=== PATIENT | female | born 1965 | race American Indian/Alaskan Native ===

== ENCOUNTER 2016-09-25 02:49 | Emergency (ER) | payer OTHER ==
[2016-09-25 03:18] LABS: Basophils % (Auto) 0.6 % (0.0-1.8); Eosinophils % (Auto) 0.6 % (0.0-4.3); Hematocrit 35.5 % (30.3-42.9); Hemoglobin 11.5 gm/dl (10.1-14.3); Mean Corpuscular HGB Conc 32 % (30-34); Mean Corpuscular Hemoglobin 28 pg (28-32); Mean Corpuscular Volume 86 fl (79-97); Platelet Count 207 K/mm3 (140-440); Red Blood Count 4.12 M/mm3 (3.65-5.03); White Blood Count 5.7 K/mm3 (4.5-11.0)
[2016-09-25 03:36] LABS: Anion Gap 18 mmol/L; Blood Urea Nitrogen 14 mg/dL (7-17); Calcium 8.8 mg/dL (8.4-10.2); Carbon Dioxide 25 mmol/L (22-30); Chloride 101.7 mmol/L (98-107); Glucose 98 mg/dL (65-100); Potassium 3.8 mmol/L (3.6-5.0); Sodium 141 mmol/L (137-145)
--- NOTE | 2016-09-25 03:49 | Emergency Department Report ---
<WES STINSON I. - Last Filed: 09/25/16 05:37> ED Chest Pain HPI - General Chief Complaint: Chest Pain Stated Complaint: CHEST PAIN Time Seen by Provider: 09/25/16 03:39 Source: patient Mode of arrival: Ambulatory Limitations: No Limitations - History of Present Illness Initial Comments: Pt is a 51 yr old female with no PMHx presents with R sided chest pain. Pt reports she was sitting in her living room when she felt chest discomfort under her R breast with L shoulder "throbbing sensation and decreased sensation". Pt reports her R chest is tender to touch and she "is aware of the pain when touched". Pain is constant with no radiation or migration. No prior episodes, last stress test was years ago. She also took 2 baby asa prior to arrival. Otherwise no fevers, chills, ROBLES, dizziness, syncope, NVD, SOB, abd pain, extremity pain or swelling, hemoptysis, travel, OCP, h/o malignancy or DVT/PE. MD Complaint: chest pain -: Sudden Onset: during rest Pain Location: right chest Severity: mild Quality: aching, pressure Consistency: constant Improves With: nothing Worsens With: exertion - Related Data On Oral Contraceptives: No Allergies Allergy/AdvReac Type Severity Reaction Status Date / Time peanut Allergy Shortness Verified 09/25/16 02:58 of Breath shellfish derived Allergy Hives Verified 09/25/16 02:58 JORGE L score - Jorge L Score Age > 65: (0) No Aspirin use within the Past 7 Days: (1) Yes 3 or more CAD Risk Factors: (0) No 2 or more Angina events in past 24 hrs: (0) No Known CAD with more than 50% Stenosis: (0) No Elevated Cardiac Markers: (0) No ST Deviation Greater than 0.5mm: (0) No JORGE L Score: 1 ED Review of Systems ROS: Stated complaint: CHEST PAIN Other details as noted in HPI Comment: All other systems reviewed and negative ED Past Medical Hx - Past Medical History Previous Medical History?: No - Surgical History Past Surgical History?: No - Social History Smoking Status: Never Smoker Substance Use Type: None ED Physical Exam - General Limitations: No Limitations General appearance: alert, in no apparent distress - Head Head exam: Present: atraumatic, normocephalic - Eye Eye exam: Present: normal appearance - ENT ENT exam: Present: mucous membranes moist - Neck Neck exam: Present: normal inspection - Respiratory Respiratory exam: Present: normal lung sounds bilaterally. Absent: respiratory distress - Cardiovascular Cardiovascular Exam: Present: regular rate, normal rhythm, normal heart sounds, other (R sided chest wall tenderness beneath R breast, reproducible). Absent: tachycardia, irregular rhythm, systolic murmur, diastolic murmur, rubs, gallop - GI/Abdominal GI/Abdominal exam: Present: soft, normal bowel sounds - Extremities Exam Extremities exam: Present: normal inspection, other (patient reports decreased sensation to the L shoulder as compared to the right) - Back Exam Back exam: Present: normal inspection - Neurological Exam Neurological exam: Present: alert, oriented X3 - Psychiatric Psychiatric exam: Present: normal affect, normal mood - Skin Skin exam: Present: warm, dry, intact, normal color. Absent: rash ED Course Vital Signs 09/25/16 09/25/16 02:58 04:13 Temperature 98.2 F Pulse Rate 80 Respiratory 20 14 Rate Blood Pressure 148/96 O2 Sat by Pulse 100 99 Oximetry - Reevaluation(s) Reevaluation #1: 09/25/16 05:37 ordered patient toradol, patient refused. Pt reports her pain is improved and resolved ED Medical Decision Making - Lab Data Result diagrams: 09/25/16 03:06 09/25/16 03:06 - EKG Data -: EKG Interpreted by Me ([id number]) EKG shows normal: sinus rhythm, axis (normal axis, (-) LVH), intervals (QTc: 452ms), ST-T waves ((-)ST/T changes, no stemi) Rate: normal (86 bpm) Critical care attestation.: If time is entered above; I have spent that time in minutes in the direct care of this critically ill patient, excluding procedure time. ED Disposition Clinical Impression: Atypical chest pain Disposition: DISCHARGED TO HOME OR SELFCARE Condition: Stable Instructions: Chest Pain (ED) Additional Instructions: I would recommend a baby aspirin a day and follow-up with Dr. Dickerson. Return any prolonged chest pain or acute symptoms. Referrals: PRIMARY CARE, [Primary Care Provider] - 3-5 Days SHEREE DICKERSON MD [Staff Physician] - 3-5 Days <JAVED FARRIS - Last Filed: 09/25/16 07:06> ED Course - Reevaluation(s) Reevaluation #2: Patient seen and examined. History obtained. She has a history of a negative cardiac workup with Dr. Dickerson several years ago. Her pain is resolved now. It was really quite atypical. She admits excessive stress. Her chest x-ray shows no acute process. 2 troponins and a d-dimer were negative. She is appropriate for outpatient referral. 09/25/16 07:04 ED Medical Decision Making - Lab Data Result diagrams: 09/25/16 03:06 09/25/16 03:06 ED Disposition Is pt being admited?: No Does the pt Need Aspirin: No Time of Disposition: 07:06
[2016-09-25] MEDS ORDERED: BABY ASPIRIN PO ONE (03:59)
[2016-09-25] MEDS ORDERED: TORADOL IV ONE (04:51)
[2016-09-25 07:34] VITALS: BP 134/74
--- NOTE | 2016-09-25 10:01 | XRay Report ---
Single view chest: History: Chest pain. Findings: Normal cardiomediastinal silhouette. Trachea is midline. No consolidation, pneumothorax or pleural effusion. Impression: No acute cardiopulmonary findings.
== END 2016-09-25 07:33 | disposition home or self-care (01) ==
LOC: ED 02:49
DX: R07.89 Other chest pain (principal)
CPT/HCPCS: 36415; 71010; 80048; 84484; 85025; 85379; 93005; 93010; 99285; J1885